=== PATIENT | female | born 1975 | race African-American/Black ===

== ENCOUNTER 2016-07-12 10:32 | Emergency (ER) | payer SELFPAY ==
[~2016-07-12] VITALS: Ht 165.1 cm; Wt 80.0 kg
[2016-07-12] MEDS ORDERED: SODIUM CHLORIDE 0.9% 1,000 ML IV ONE (10:33)
[2016-07-12] MEDS ORDERED: ONDANSETRON 2MG/ML, 2ML ONE (10:53)
[2016-07-12] MEDS ORDERED: HYDROmorphone 1 MG/ML, 1ML ONE ×2 (10:53→11:40)
[2016-07-12] MEDS ORDERED: ONDANSETRON 2MG/ML, 2ML IVPush ONE ×2 (11:00→13:00)
[2016-07-12] MEDS ORDERED: SODIUM CHLORIDE FLUSH 10ML SYR IVF ONE (11:00)
[2016-07-12] MEDS ORDERED: SODIUM CHLORIDE 0.9% 1,000ML IVBOLUS ONE (11:00)
[2016-07-12] MEDS: HYDROmorphone 1 MG/ML, 1ML IVPush PRN ×2 (11:01→11:52)
[2016-07-12 11:42] LABS: ASPARTATE AMINO TRANSFERASE 18 U/L (15-37); BLOOD UREA NITROGEN 10 mg/dL (7-18)
[2016-07-12] MEDS ORDERED: OMNIPAQUE 350 MG/ML, 100ML BOTTLE ONE (12:28)
[2016-07-12] MEDS ORDERED: HYDROmorphone 1 MG/ML, 1ML IVPush PRN (13:00)
[2016-07-12] MEDS ORDERED: LISI-167 PO (13:02)
[2016-07-12 13:13] VITALS: BP 168/102
== END 2016-07-12 13:28 | disposition home or self-care (01) ==
LOC: ED 13:00
DX: K52.9 Noninfective gastroenteritis and colitis, unspecified (principal); E86.0 Dehydration; I10 Essential (primary) hypertension; E11.9 Type 2 diabetes mellitus without complications
CPT/HCPCS: 36415; 74177; 80053; 81003; 83690; 84484; 84703; 85025; 96361; 96374; 96375; 96376; 99285; J1170; J2405; J7030; Q9967